=== PATIENT | male | born 1985 | race Caucasian/White ===

== ENCOUNTER 2016-12-03 23:47 | Emergency (ER) | payer MEDICARE ==
[2016-12-04 05:50] LABS: HEMOGLOBIN 13.2 gm/dl (14.0-17.5); RED BLOOD COUNT 4.67 M/UL (4.20-5.50); WHITE BLOOD COUNT 7.3 K/UL (4.5-11.0)
[2016-12-04 06:12] LABS: BUN/CREATININE RATIO 20 (0-10)
== END 2016-12-04 06:54 | disposition home or self-care (01) ==
LOC: ER1 23:47
PROVIDERS: Family Medicine
DX: S90.811A Abrasion, right foot, initial encounter (principal); S90.414A Abrasion, right lesser toe(s), initial encounter; L03.115 Cellulitis of right lower limb; I69.351 Hemiplegia and hemiparesis following cerebral infarction affecting right dominant side; F17.210 Nicotine dependence, cigarettes, uncomplicated; Z88.0 Allergy status to penicillin; Z88.6 Allergy status to analgesic agent; W10.9XXA Fall (on) (from) unspecified stairs and steps, initial encounter
CPT/HCPCS: 36415; 73610; 73630; 80053; 85025; 86140; 99283

== ENCOUNTER → 2016-12-15 | Outpatient (CLI) | payer MEDICARE | LOC: EMI 15:52 | DX: M21.371 Foot drop, right foot (principal); M25.78 Osteophyte, vertebrae; M51.27 Other intervertebral disc displacement, lumbosacral region | CPT/HCPCS: 72148 ==